=== PATIENT | male | born 2005 | race Caucasian/White ===

== ENCOUNTER 2024-03-04 10:12 | Emergency (ER) | payer OTHER, SELFPAY ==
[2024-03-04 10:13] VITALS: BP 140/79; PULSE 84; RESP 16; TEMP 36.1; O2SAT 98; BMI 25.9
--- NOTE | 2024-03-04 10:23 | CT_ITS ---
STUDY: CT ABDOMEN AND PELVIS WITH CONTRAST REASON FOR EXAM: Male, 19 years old. Right groin pain RADIATION DOSAGE (If Supplied By Facility): CTDIvol = ( 11.21 ) mGy, DLP = ( 717.33 ) mGycm TECHNIQUE: Transaxial images were obtained from the dome of the diaphragm to the symphysis pubis without oral contrast. IV 100mL Isovue-300 was administered. Sagittal and coronal images were reconstructed. Individualized dose optimization techniques were used for this CT. COMPARISON: None. FINDINGS: The visualized lung bases are unremarkable. The visualized portions of the heart are within normal limits. Normal liver. Normal gallbladder and extrahepatic biliary system. Normal spleen. Normal pancreas. Normal bilateral adrenal glands. Normal right kidney. Normal left kidney. Normal visualized stomach. Normal small intestine. Normal colon. The appendix is visualized and appears normal. Normal abdominal aorta. Normal inferior vena cava. Normal retroperitoneum. Normal urinary bladder. Small lymph nodes are seen within the mesentery in the right lower quadrant suggests a possible mesenteric adenitis. Small benign-appearing bilateral inguinal lymph nodes. Normal osseous structures. CT/Abdomen/Pelvis W IV Cont ONLY IMPRESSION: Findings suggest mesenteric adenitis in the right lower quadrant. Electronically Signed: Ranjit Hobson MD at 11:59 EST ,
--- NOTE | 2024-03-04 10:23 | US_ITS ---
STUDY: SCROTUM ULTRASOUND REASON FOR EXAM: Male, 19 years old. Right testicle pain TECHNIQUE: Ultrasound evaluation of the scrotum was performed with color Doppler and static crooks-scale imaging. COMPARISON: None. FINDINGS: RIGHT TESTICLE INTRATESTICULAR: There is a normal size of the right testicle. The right testicle measures 4.8 cm x 3 cm x 2.1 cm. There is a homogenous echotexture. There is normal arterial and normal venous vascularity. There is no demonstrated right testicular mass or cyst. EXTRATESTICULAR: The epididymis is normal in size. The epididymis head measures 1.4 cm x 1 cm x 0.9 cm. There is normal vascularity of the epididymis. There is no demonstrated epididymal cystic structure. There is no demonstrated hydrocele. There are prominent extratesticular veins consistent with a varicocele. There is no demonstrated extratesticular mass or cyst. LEFT TESTICLE INTRATESTICULAR: There is a normal size of the left testicle. The left testicle measures 4.8 cm x 2.8 cm x 2.1 cm. There is a homogenous echotexture. There is normal arterial and normal venous vascularity. There is no demonstrated left testicular mass or cyst. EXTRATESTICULAR: The epididymis is normal in size. The epididymis head measures 1.2 cm x 0.9 cm x 0.6 cm. There is normal vascularity of the epididymis. There is no demonstrated epididymal cystic structure. There is a small hydrocele. There is no demonstrated varicocele. There is no demonstrated extratesticular mass or cyst. US/Testicular with Arterial Flow IMPRESSION: Small right varicocele. Small left hydrocele. Electronically Signed: Ranjit Hobson MD at 12:05 EST ,
--- NOTE | 2024-03-04 10:24 | EX.ED.DYSGE1 ---
HPI History of Present Illness Chief Complaint: Complaint Narrative Narrative: Patient is a 19-year-old male with no known significant past medical history who presents to the emergency department chief complaint of right testicular pain. Patient states about 2 days ago he noted that after his second swim practice he developed right testicular pain. 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 Patient states that during his workout he did not notice any pain or feeling of pop or any of this nature. He states that yesterday he had a vague discomfort of this testicular pain still. He notes that today he was nearby for a swim meet and notes that when he put a tight swimsuit on this became very uncomfortable for him therefore they came here for further evaluation management. PFSH [facility] Medical History no medical history Home Medications ?Medication ?Instructions ?Recorded ?Last Taken ?Type NK 03/04/24 Unknown History Allergy/AdvReac Type Severity Reaction Status Date / Time No Known Allergies Allergy Verified 03/04/24 10:14 Social History Smoking Status: Never smoker ROS ROS ED ROS Narrative Constitutional: Denies any fevers, chills, headaches, lightness, dizziness Eyes: Denies change of the double vision blurry vision Abdomen: Denies any abdominal pain nausea vomit diarrhea : Complains of right testicular pain as noted above, denies any urethral discharge, denies any painful urination or blood in his urine Neurological: Denies numbness, weakness, tingling Skin: Denies rashes or lesions EXAM Physical Exam Narrative Exam Narrative: General: Patient lying in bed rest comfortably did not appear to be in acute distress Head: Atraumatic, normocephalic Eyes: PERRL bilaterally, EOMI bilateral no conjunctival injection noted Neck: Soft, supple, trachea midline Cardiovascular: Regular rate and rhythm Respiratory: Clear to auscultation bilaterally Abdomen: Soft, nondistended, no tenderness palpation, bowel sounds present x 4 Genitourinary: No urethral discharge noted, testicular lie normal, bilateral cremasteric reflex noted, patient appears to have a right sided inguinal hernia noted on exam when coughing that is easily reducible, mild tenderness to palpation of the epididymis on the right side no tenderness palpation of the epididymis on the left Extremities: +5/5 strength noted in the bilateral upper and lower extremities Neurological: Patient follow commands knew that he was at [facility] year is 2023 Skin: Warm, dry, intact no rashes or lesions noted Const Vital Signs: 03/04/24 10:13 Temperature 96.9 F L Temperature Source Temporal Pulse Rate 84 Respiratory Rate 16 Blood Pressure 140/79 H Blood Pressure Mean 99 Pulse Ox 98 Oxygen Delivery Method Room Air MDM MDM MDM Narrative Medical decision making narrative: Patient is a 19-year-old male who presents to the emergency department with a chief complaint of right-sided testicular pain. Patient will have a workup performed here on the differential diagnosis includes but not limited to inguinal hernia, epididymitis, orchitis, testicular torsion although feel this less likely as he has normal vertical lie of testicles bilaterally and bilateral cremasteric reflex noted. Once workup is obtained reviewed he will be reevaluated. Patient states that he does not want a thing for pain right now.. Patient CBC reviewed showed no evidence leukocytosis white blood count normal at 6.4, hemoglobin of 16.2, plate count was noted to be normal at 240, lipase normal at 26. Patient's testicular ultrasound was reviewed showed small right varicocele small left hydrocele noted. Patient CT abdomen pelvis with IV contrast was reviewed and showed findings suggestive of mesenteric adenitis in the right lower quadrant. On reevaluation the patient he is feeling better he would like to go home at this point time. I advised the patient as he is not from here if he has worsening pain or any other concerns he needs to go to the local emergency department. He was advised to follow-up with his primary care physician in [place] and a potential referral to general surgery for further evaluation of a potential right sided inguinal hernia. He was encouraged to use NSAIDs for the mesenteric adenitis. He is agreeable this plan he would like to go home at this point time all question concerns answered he was discharged home in stable condition. Lab Data Labs: Laboratory Results - last 24 hr 03/04/24 10:40 WBC 6.4 RBC 5.31 Hgb 16.2 Hct 48.3 MCV 91.0 MCH 30.5 MCHC 33.5 RDW Std Deviation 41.1 RDW Coeff of Canelo 12.3 Plt Count 240 MPV 9.8 Immature Gran % (Auto) 0.500 Neut % (Auto) 69.2 Lymph % (Auto) 18.7 L Glynn % (Auto) 9.7 Eos % (Auto) 1.1 Baso % (Auto) 0.8 Absolute Neuts (auto) 4.4 Absolute Lymphs (auto) 1.19 Nucleated RBC % 0 Lipase 26 Radiography Diagnostic Testing: Clinical Impression(s) from Imaging Studies Abdomen/Pelvis CT 03/04/24 10:23 IMPRESSION: Findings suggest mesenteric adenitis in the right lower quadrant. Electronically Signed: Ranjit Hobson MD at 11:59 EST , Testicular Ultrasound 03/04/24 10:23 IMPRESSION: Small right varicocele. Small left hydrocele. Electronically Signed: Ranjit Hobson MD at 12:05 EST , Discharge Plan Triage Chief Complaint: Complaint ED Provider: Gui Chambers Dx/Rx/DC Orders Clinical Impression: Mesenteric adenitis Prescriptions: No Action NK Primary Care Provider: SERGEY ISIDRO MD Referrals: SERGEY ISIDRO MD [Other] Activity Restrictions/Additional Instructions: Follow-up with your primary care physician in the outpatient setting. Return with worsening symptoms or other concerns. Have further evaluation for a potential right inguinal hernia by your primary care physician and potentially general surgery in the outpatient setting. Use NSAIDs such as ibuprofen for pain control of the mesenteric adenitis that you are diagnosed with here today as we discussed. Print Language: Turkmen Disposition Disposition: Home, Self Care
[2024-03-04 10:45] LABS: Absolute Lymphocyte Count 1.19 X10^3/uL (0.83-4.51); Absolute Neutrophil Count 4.4 X10^3/uL (2.0-7.7); Basophil# 0.05 X10^3/uL; Basophil% 0.8 % (0-1); Eosinophil# 0.07 X10^3/uL; Eosinophils% 1.1 % (0-5); Hematocrit 48.3 % (40-54); Hemoglobin 16.2 g/dL (13.0-16.5); Lymphocyte # 1.19 X10^3/ul (0.83-4.51); Lymphocyte % 18.7 % (19-41); Mean Corp Hgb Conc 33.5 g/dL (32-36); Mean Corpuscular Hgb 30.5 pg (27.0-32.0); Mean Platelet Vol. 9.8 fl (6.2-12.0); Monocyte# 0.62 X10^3/uL; Monocyte% 9.7 % (0-10); NRBC Flagged by Analyzer 0 % (0-5); Neutrophil # 4.41 X10^3/uL (2.7-7.7); Neutrophil % 69.2 % (47-70); Platelet Count 240 K/mm3 (150-450); RBC Distribution Width CV 12.3 % (11.6-14.6); RBC Distribution Width SD 41.1 fl (35.1-43.9); Red Blood Count 5.31 M/mm3 (4.6-6.2); White Blood Count 6.4 K/mm3 (4.4-11.0)
[2024-03-04 10:52] LABS: Lipase 26 U/L (13-75)
[2024-03-04 12:50] VITALS: BP 138/78; PULSE 88; RESP 16; TEMP 36.7; O2SAT 99
== END 2024-03-04 12:51 | disposition home or self-care (01) ==
PROVIDERS: Emergency Provider Emergency Medicine; Visit Provider Emergency Medicine
DX: I88.0 Nonspecific mesenteric lymphadenitis (principal); I86.1 Scrotal varices
CPT/HCPCS: 74177; 76870; 83690; 85025; 93976; 99283; Q9967; A4216